=== PATIENT | male | born 1960 | race Caucasian/White ===

== ENCOUNTER 2016-09-21 05:49 | Day surgery (SDC) | payer OTHER ==
--- NOTE | ~2016-09-21 | OP ---
Record Of Operation [facility] [address] [place]. [address] NAME: MARY SALAS : 60 STATUS : [facility]#: [id number] AGE: 55 ADM/REG DATE : 09/21/16 MR#: [id number] REPORT SERV DATE: 09/21/16 DICTATED BY: ROXIE RANGEL DATE: 09/21/16 REPORT STATUS : Draft TRANSCRIBED BY: MODLeola DATE: 09/21/16 DATE OF PROCEDURE: 09/21/2016 SURGEON: Roxie Rangel D.P.M. PREOPERATIVE DIAGNOSIS: Tailor's bunion, left foot. POSTOPERATIVE DIAGNOSIS: Tailor's bunion, left foot. PROCEDURE: 5th metatarsal head resection. ANESTHESIA: General. HEMOSTASIS: Thigh tourniquet 350 mmHg. ESTIMATED BLOOD LOSS: None. MATERIALS: None. INJECTABLES: 10 mL of 0.5% Marcaine plain. PATHOLOGY: None. PROCEDURE IN DETAIL: Following IV sedation, the patient was brought to the operating room, placed on the operating table in the normal supine position. General anesthesia was given, and the foot was scrubbed, prepped, and draped in the usual aseptic manner. Attention was directed to the dorsal aspect of the left 5th metatarsal where the incision was marked. The foot and leg were elevated and exsanguinated and the tourniquet was inflated to 350 mmHg. A linear incision was made over the 5th metatarsal head. The incision measured approximately 3 cm. The incision was deepened through skin and subcutaneous tissue to the level of the capsule. All bleeders were electrocauterized as necessary. A linear capsulotomy was performed over the head of the 5th metatarsal. Capsular structures were then reflected medially and laterally. Using the sagittal bone saw, the head of the 5th metatarsal was resected. The wound was then flushed with copious amounts of saline solution. The head was removed with a Raymond and a #15 blade and Armida. Once the head have been removed, the capsular structures were pursestringed within the space between the 5th metatarsal and the base of the proximal phalanx. This was done with 2-0 Vicryl on the half-togiak needle. These tissues were pulled within the space creating a spacer. The remaining capsular structures were closed with 2-0 Vicryl. Subcutaneous tissues were closed with 4-0 Monocryl. Skin was closed with 4-0 nylon in a horizontal fashion. 10 mL of 0.5% Marcaine plain were injected about the incision site. The wound was then dressed with Xeroform gauze, 4x4s, Hallie, and Coban. The callus on the plantar aspect of the left 5th metatarsal head was shaved prior to dressing. The tourniquet was then deflated and a hyperemic response was noted to all digits on the left foot. The patient tolerated anesthesia and procedure well. He left OR for recovery with vital signs stable and vascular status intact to the left foot. Following a short stay in recovery, he will be discharged home. He is allowed weightbearing Record Of Operation [address] [place]. [address] NAME: MARY SALAS : 60 STATUS : [facility] PAT#: [id number] AGE: 55 ADM/REG DATE : 09/21/16 MR#: [id number] REPORT SERV DATE: 09/21/16 DICTATED BY: ROXIE RANGEL DATE: 09/21/16 REPORT STATUS : Draft TRANSCRIBED BY: LAKHWINDER DATE: 09/21/16 as tolerated in a postoperative shoe. Pain medication was prescribed and he will follow up in my office on Monday. EMMA/LAKHWINDER Roxie Rangel D.P.M. / [id number] CC: Leigha Marquez M.D.
[~2016-09-21 05:49] MED LIST: ACET500CAP PO; CITRACAL PO; CYANO1000T SL; FARXIGA10 PO; GLUCOTRO10 PO; GLUCPH PO; LORT7 PO; MULTIPLE VIT PO; NO MEDICATION; PRAV10 PO
== END 2016-09-21 11:11 | disposition home or self-care (01) ==
LOC: SDC 05:49
PROVIDERS: Podiatrist Foot & Ankle Surgery
PROC: 0QBP0ZZ Excision of Left Metatarsal, Open Approach (ICD-10-PCS; principal; 2016-09-21 07:15)
DX: M21.622 Bunionette of left foot (principal); E11.9 Type 2 diabetes mellitus without complications; Z98.84 Bariatric surgery status; Z88.8 Allergy status to other drugs, medicaments and biological substances; Z79.899 Other long term (current) drug therapy; Z90.89 Acquired absence of other organs; Z98.890 Other specified postprocedural states
CPT/HCPCS: 82962; 85014; 85018; 93005; J2250; J2405; J3010